=== PATIENT | female | born 1995 | race Caucasian/White ===

== ENCOUNTER 2019-03-25 00:22 | Emergency (ER) | payer OTHER ==
[2019-03-25 00:41] VITALS: BP 114/63; PULSE 93; TEMP 98.4; BMI 23.0
--- NOTE | 2019-03-25 01:00 | PDOC ---
History of Present Illness - General Chief Complaint: Vaginal Bleeding Stated Complaint: VAGINAL BLEEDING,18 WKS Time Seen by Provider: 03/25/19 00:55 History Source: Patient Exam Limitations: No Limitations - History of Present Illness Initial Comments: Senait Duvall is a 23 yo healthy F , LMP 12/15, who presents to the [facility] er after 1 hour of vaginal bleeding associated with lower abdominal and lower back cramping. The patient states she went to the bathroom, looked at the toilet and saw a bunch of clots which worried her so she came into the ER to be evaluated. 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 Her 1st was uncomplicated and she has a healthy child which was a at term. She has received routine pre- care until now, is taking her pre- vitamins, and has had no complications before tonight. She recently moved from the [place] to [place], and has a new OB assigned to her which she has not yet seen. She presents to the ER to make sure is okay and she is not having a miscarriage Denies nausea, vomtiing, fevers, or chills OB: cristela PSH: None reported Social Hx: Denies smoking, drinking or other substance usage Allergies: NKA, NKDA Past History - Past Medical History Allergies/Adverse Reactions: Allergies Allergy/AdvReac Type Severity Reaction Status Date / Time No Known Allergies Allergy Verified 03/25/19 00:40 Home Medications: Ambulatory Orders NK [No Known Home Medication] 03/25/19 - Psycho Social/Smoking Cessation Hx Smoking History: Never smoked Have you smoked in the past 12 months: No Information on smoking cessation initiated: No Hx Alcohol Use: No Drug/Substance Use Hx: No Review of Systems - Review of Systems Able to Perform ROS?: Yes Comments:: CONSTITUTIONAL: Absent: fever, no chills, no fatigue EYES: Absent: visual changes ENT: Absent: ear pain, no sore throat CARDIOVASCULAR: Absent: chest pain, no palpitations RESPIRATORY: Absent: cough, no SOB GI: Absent: abdominal pain, no nausea, no vomiting, no constipation, no diarrhea GENITOURINARY: Present: Hamturia Absent: dysuria, no frequency MUSKULOSKELETAL: Present: Back pain Absent: no arthralgia, no myalgia SKIN: Absent: rash NEURO: Absent: headache *Physical Exam - Vital Signs Last Vital Signs Temp Pulse Resp BP Pulse Ox 98.4 F 93 H 20 114/63 100 03/25/19 00:40 03/25/19 00:40 03/25/19 00:40 03/25/19 00:40 03/25/19 00:40 - Physical Exam GENERAL: Well-appearing, well-nourished. No apparent distress. HEENT: Normocephalic, atraumatic. PERRL, EOM intact. CARDIOVASCULAR: Normal S1, S2. Regular rate and rhythm. PULMONARY: No evidence of respiratory distress. Lungs clear to auscultation bilaterally. No wheezing, rales or rhonchi. ABDOMEN: Gravid uterus. Soft, non-distended. PELVIC: There is significant blood in the vaginal vault. No CMT. No adnexal TTP. Cervix is closed. EXTREMITIES: Normal ROM in all four extremities. No gross deformities. SKIN: Warm, dry. No rash NEUROLOGICAL: No focal neurological deficits. ED Treatment Course - LABORATORY CBC & Chemistry Diagram: 03/25/19 01:19 03/25/19 01:19 Medical Decision Making - Medical Decision Making Senait Duvall is a 23 yo healthy F , LMP 10, who presents to the [facility] er after 1 hour of vaginal bleeding associated with lower abdominal and lower back cramping. The patient states she went to the bathroom, looked at the toilet and saw a bunch of clots which worried her so she came into the ER to be evaluated. 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 Her 1st was uncomplicated and she has a healthy child which was a at term. She has received routine pre-panchito care until now, is taking her pre- vitamins, and has had no complications before tonight. She recently moved from the [place] to [place], and has a new OB assigned to her which she has not yet seen. She presents to the ER to make sure is okay and she is not having a miscarriage Vital Signs Temp Pulse Resp BP Pulse Ox 98.4 F 93 H 20 114/63 100 03/25/19 00:40 03/25/19 00:40 03/25/19 00:40 03/25/19 00:40 03/25/19 00:40 DDx IBNLT: Impending , threatened , hemolytic disease or the , electrolyte/metabolic disturbance, anemia Plan: Labs, urine, POCUS, type, re-assess, POCUS: Baby has a normal HR of 141, good movements Labs: Unremarkable T&S: Ab negative Urine: 2+ blood Re-assessment: Patient feels better after tylenol Disposition: Home with OB fu - Strict return precautions Discharge - Discharge Information Problems reviewed: Yes Clinical Impression/Diagnosis: Vaginal bleeding before 22 weeks gestation Condition: Stable Disposition: HOME - Admission No - Follow up/Referral - Patient Discharge Instructions Patient Printed Discharge Instructions: DI for Threatened Additional Instructions: You came into the ER with vaginal bleeding. We did an ultrasound which showed a normal heart rate and good movements. Your Beta HCG was 11,613. Your Type and screen AB was Negative. You must schedule a follow up with the OB doctor we are referring you to in the next 24 to 48 hours to make sure you and baby are okay. Come back to the ER immediately with any new or worsening concerns. Thank you for coming to the [facility] ER. We hope youf eel better soon! Print Language: URDU - Post Discharge Activity
[2019-03-25] MEDS ORDERED: ACETAMINOPHEN 325 MG TABLET (FP) PO ONE (01:30)
--- NOTE | 2019-03-25 01:30 | PDOC ---
Documentation entered by Marcelo Christiansen SCRIBE, acting as scribe for Sandra Banks DO. Sandra Banks DO: This documentation has been prepared by the Kuldip chaudhary Angel, SCRIBE, under my direction and personally reviewed by me in its entirety. I confirm that the documentation accurately reflects all work, treatment, procedures, and medical decision making performed by me. Attending Attestation - Resident Resident Name: Miguel Collado - ED Attending Attestation I have performed the following: I have examined & evaluated the patient, The case was reviewed & discussed with the resident, I agree w/resident's findings & plan, Exceptions are as noted - HPI HPI: 03/25/19 01:34 The patient is a 23 year old female, , currently 18 weeks , with no significant PMH of who presents to the emergency department for 1hr of vaginal bleeding. Pt states she sat on the toilet and noticed blood with clots in the toilet bowl. Pt states her LMP was 11/15/18. Pt states she recently moved to [place] from [facility] and does not have an OBGYN. Pts last OBGYN appointment was 2 weeks ago. The patient denies chest pain, shortness of breath, headache and dizziness. Denies fever, chills, cough, nausea, vomiting, diarrhea and constipation. Denies dysuria, frequency, urgency. Allergies: NKDA - Physicial Exam PE: 03/25/19 01:35 GENERAL: Awake, alert, and fully oriented, in no acute distress HEAD: No signs of trauma NECK: Normal ROM, supple, no lymphadenopathy, JVD, or masses LUNGS: Breath sounds equal, clear to auscultation bilaterally. No wheezes, and no crackles HEART:+tachy. no murmurs, rubs or gallops ABDOMEN: +Mild suprapubic tenderness. +gravid uterus below umbilicus. Soft, normoactive bowel sounds. No guarding, no rebound. No masses EXTREMITIES: Normal range of motion, no edema. No clubbing or cyanosis. No cords, erythema, or tenderness NEUROLOGICAL: Cranial nerves II through XII grossly intact. SKIN: Warm, Dry, normal turgor, no rashes or lesions noted. - Medical Decision Making 03/25/19 01:22 a/p: 23yo female at 18 weeks gestation with vaginal bleeding and passing clots tonight -no active bleeding at this time -mild cramping -concern for spontaneous/threatened ab -will perform pocus -will monitor and reassess -will send labs, type and screen -pt recently moved to [place] from the [place] and does not have an EQUIPMENT SPECIALIST in the area -pt with recent EQUIPMENT SPECIALIST eval by her prior color repairer in the [place] 2 weeks ago 03/25/19 01:29 pocus shows fhr 141 femur length 18w1d good movement posterior placenta 03/25/19 01:50 pt signed out to the oncoming ed physician pending labs and further eval
[2019-03-25] MEDS ORDERED: ACETAMINOPHEN 325 MG TABLET (FP) ONE (01:35)
[2019-03-25 01:50] LABS: BASO % 0.6 % (0-2.0); HEMATOCRIT 32.8 % (32.4-45.2); HEMOGLOBIN 11.3 GM/dL (10.7-15.3); LYMPH % 35.5 % (8-40); MCH 28.5 pg (25.7-33.7); MCHC 34.5 g/dl (32.0-36.0); MEAN CELL VOLUME 82.6 fl (80-96); MEAN PLT VOLUME 9.7 fl (7.5-11.1); MONO % 4.9 % (3.8-10.2); PLATELET COUNT 246 K/MM3 (134-434); RBC 3.97 M/mm3 (3.60-5.2); RDW 14.9 % (11.6-15.6)
[2019-03-25 02:27] LABS: EPI CELLS 1.6 /HPF (0-5/HPF); HYALINE CASTS 4 /lpf (0-8); PH,URINE 6.5 (5.0-8.0); URINE APPEARANCE CLOUDY; URINE BACTERIA 1.9 /hpf (NEGATIVE); URINE BILIRUBIN NEGATIVE (NEGATIVE); URINE COLOR YELLOW; URINE GLUCOSE (UA) NEGATIVE (NEGATIVE); URINE KETONE NEGATIVE (NEGATIVE); URINE LEUK ESTERASE TRACE (NEGATIVE); URINE NITRITE NEGATIVE (NEGATIVE); URINE PROTEIN NEGATIVE (NEGATIVE); URINE RBC 122 /hpf (0-4); URINE UROBILINOGEN 0.2 mg/dL (0.2-1.0); URINE WBC 3 /hpf (0-5)
[2019-03-25 02:40] LABS: ALBUMIN 3.4 g/dl (3.4-5.0); BILIRUBIN,TOTAL 0.5 mg/dL (0.2-1); BLOOD UREA NITROGEN 9.6 mg/dL (7-18); CALCIUM 9.1 mg/dL (8.5-10.1); CREATININE 0.5 mg/dL (0.55-1.3); POTASSIUM 3.7 mmol/L (3.5-5.1); TOT PROT 7.2 g/dl (6.4-8.2)
== END 2019-03-25 03:19 | disposition home or self-care (01) ==
LOC: JER 00:22
DX: O26.892 Other specified pregnancy related conditions, second trimester (principal); Z3A.22 22 weeks gestation of pregnancy; N93.9 Abnormal uterine and vaginal bleeding, unspecified
CPT/HCPCS: 36415; 76815; 80053; 81003; 84702; 85025; 86850; 86900; 86901; 99283-25

== ENCOUNTER 2019-08-17 09:20 | Inpatient (IN) | payer OTHER ==
[2019-08-17] MEDS: ELECTROLYTE-148 SOLN 1,000 ML IV SCH ×3 (10:00→17:55)
[2019-08-17] MEDS ORDERED: OXYTOCIN 30 UNITS in 0.9% NS 30 UNIT/500 ML INFUS.BAG IVPB SCH (10:45)
--- NOTE | 2019-08-17 10:52 | HP ---
Past Medical History - Admission Chief Complaint: Scheduled IOL History of Present Illness: 24yo @ 38.6wks by LMP/sono here for IOL for IUGR 9%tile per MFM recommendation. No VB/LOD. No ctx. Reports + FM PNC @ [address]; initially started in the [place] preg c/b IUGR 99%tile (5-11lbs) on 08/07 sono. IUGR first seen on 07/06 sono- again 9%tile, Hgb C trait, Rubella/Varicella NI History Source: Patient Limitations to Obtaining History: No Limitations, Clinical Condition, Dementia, Intoxication, Intubated, Language Barrier, Physical Impairment, Poor Historian, Uncooperative, Unresponsive, Other - Past Medical History VICE PRESIDENT OF PROCUREMENT: No: Alzheimer's, CVA, Dementia, Migraine, Multiple Sclerosis, Peripheral Neuropathy, Parkinson's, Seizure, Syncope, TIA, Vertigo, Other Cardiovascular: No: AFIB, Aneurysm, Aortic Insufficiency, Aortic Stenosis, CAD, CHF, Deep Vein Thrombosis, HTN, Hyperlipdemia, [place], Mitral Insufficiency, Mitral Stenosis, Murmur, Pulmonary Hypertension, Other ...: 4 ...Para: 1 ...Term: 1 ...: 0 ...Spon : 2 ...Living Children: 1 ... Weeks Gestation by Dates: 38.6 ...EDC by Dates: 08/25/19 Heme/Onc: No: Anemia, B12 Deficiency, Bleeding Disorder, Cancer, Current Chemotherapy, Current Radiation Therapy, Hemochromatosis, Hypercoaguable State, Myeloproliferative Synd, Sickle Cell Disease, Sickle Cell Trait, Thromb ocytopenia, Other Infectious Disease: No: AIDS, C-Diff, Herpes Zoster, HIV, MRSA, STD's, Tuberculosis, VREF, Other Psych: No: Addictions, Anxiety, Bipolar, Depression, Panic, Psychosis, Schizophrenia, Other Musculoskeletal: No: Bursitis, Chronic low back pain, Hemiparesis, Hemiplegia, Osteoarthritis, Paraplegia, Other Rheumatology: No: Fibromyalgia, Gout, Lupus, Rheumatoid Arthritis, Sarcoidosis, Vasculitis, Other ENT: No: Allergic Rhinitis, Sinusitis, Other Endocrine: No: Floyd's Disease, [place]'s Disease, Diabetes Insipidus, Diabetes Mellitus, Hyperparathyroidism, Hyperthyroidism, Hypothyroidism, Osteopenia, SIADH, Other - Past Surgical History Past Surgical History: Yes: None Hx Myomectomy: No Hx Transabdominal Cerclage: No - Smoking History Smoking history: Never smoked Have you smoked in the past 12 months: No - Alcohol/Substance Use Hx Alcohol Use: No Home Medications - Allergies Allergies/Adverse Reactions: Allergies Allergy/AdvReac Type Severity Reaction Status Date / Time No Known Allergies Allergy Verified 03/25/19 00:40 - Home Medications Home Medications: Ambulatory Orders NK [No Known Home Medication] 03/25/19 Review of Systems - Review of Systems Constitutional: reports: No Symptoms Neck: reports: No Symptoms Cardiovascular: reports: No Symptoms Respiratory: reports: No Symptoms Physical Exam - Maternity Constitutional: Yes: Well Nourished - Abdominal Exam/OB Number of Fetuses: Single Presentation: Vertex Contractions: No Monitor Mode: External Heart Rate Location: [facility] Category: I Accelerations: Non-Uniform Decelerations: None - Vaginal Exam/OB Vaginal Bleeding: No Speculum Exam: No Dilatation (cm): 2-3 Effacement (%): 50 Amniotic Membrane Status: Intact Presentation: Vertex/Position Imaging - Results Ultrasound: Report Reviewed Assessment/Plan 24yo @ 38.6wks by LMP/sono here for IOL for IUGR Admit to L&D Cat 1 tracing Pitocin-AROM Epidural prn Anticipate DAVID Ramírez MD
[2019-08-17 11:10] VITALS: BMI 25.0
[2019-08-17] MEDS ORDERED: OXYTOCIN 30 UNITS in 0.9% NS 30 UNIT/500 ML INFUS.BAG IVPB ONE (11:17)
[2019-08-17 12:33] LABS: BASO % 0.5 % (0-2.0); EOS % 0.7 % (0-4.5); HEMATOCRIT 28.2 % (32.4-45.2); HEMOGLOBIN 9.4 GM/dL (10.7-15.3); LYMPH % 32.8 % (8-40); MCH 25.6 pg (25.7-33.7); MCHC 33.2 g/dl (32.0-36.0); MEAN CELL VOLUME 77.2 fl (80-96); MEAN PLT VOLUME 10.2 fl (7.5-11.1); MONO % 6.8 % (3.8-10.2); NEUT % 59.2 % (42.8-82.8); PLATELET COUNT 224 K/MM3 (134-434); RBC 3.65 M/mm3 (3.60-5.2); RDW 17.1 % (11.6-15.6); WHITE BLOOD COUNT 8.5 K/mm3 (4.0-10.0)
[2019-08-17 12:41] LABS: INR 0.92 (0.83-1.09); PROTHROMBIN TIME (PATIENT) 10.9 SEC (9.7-13.0)
[2019-08-17 12:50] LABS: BLOOD UREA NITROGEN 7.9 mg/dL (7-18); CALCIUM 8.5 mg/dL (8.5-10.1); POTASSIUM 4.4 mmol/L (3.5-5.1)
[2019-08-17 12:53] LABS: CREATININE 0.5 mg/dL (0.55-1.3)
--- NOTE | 2019-08-17 13:54 | PN ---
Progress Note, Labor Vaginal Exam #1 Labor Exam Date: 08/17/19 Labor Exam Time: 13:54 Heart Rate (range): Cat I Dilatation: 3 Effacement (%): 50 Amniotic Membrane Status: Ruptured Presentation: Vertex/Position Station: -3 Remarks: AROM, clears Epidural prn Anticipate Deny Ramírez MD
[2019-08-17] MEDS ORDERED: BUPIVACAINE HCL/PF 0.25% (2.5MG/ML) 10 ML VIAL ONE (16:05)
[2019-08-17] MEDS ORDERED: NALOXONE HCL 0.4 MG/ML VIAL IVPUSH PRN (16:29)
[2019-08-17] MEDS ORDERED: FENTANYL/BUPIVACAINE/NS/PF - PCEA - 50 ML DISP.SYRIN EP SCH (16:30)
[2019-08-17] MEDS ORDERED: FENTANYL/BUPIVACAINE/NS/PF - PCEA - 50 ML DISP.SYRIN EP ONE ×2 (16:40→20:00)
--- NOTE | 2019-08-17 17:12 | PN ---
Progress Note, Labor Vaginal Exam #2 Labor Exam Date: 08/17/19 Labor Exam Time: 17:11 Heart Rate (range): Cat I Dilatation: 4 Effacement (%): 70 Amniotic Membrane Status: Ruptured Presentation: Vertex/Position Station: -3 Remarks: Now s/p epidural, comfortable Continue pitocin Anticipate Deny Ramírez MD
--- NOTE | 2019-08-17 20:26 | PN ---
Progress Note, Labor Vaginal Exam #3 Labor Exam Date: 08/17/19 Labor Exam Time: 20:00 Heart Rate (range): Cat I Dilatation: 4 Effacement (%): 70 Amniotic Membrane Status: Ruptured Presentation: Vertex/Position Station: -3 Remarks: Unchanged IUPC placed Increase pitocin to adequate MVU Anticipate DAVID Ramírez MD
[2019-08-17] MEDS ORDERED: LIDOCAINE HCL 1% PRESERVATIVE FREE - 30ML VIAL ONE (21:37)
[2019-08-17] MEDS ORDERED: OXYTOCIN 20 UNITS in 0.9% NS 20 UNIT/1,000 ML INFUS.BAG IV ONE ×2 (21:37→23:47)
[2019-08-17] MEDS ORDERED: WITCH HAZEL 50% (TUCKS) 40 PAD/JAR PAD TP PRN (21:58)
[2019-08-17] MEDS ORDERED: BISACODYL 10 MG SUPP.RECT RC PRN (21:58)
[2019-08-17] MEDS ORDERED: METHYLERGONOVINE MALEATE 0.2 MG/1 ML AMP IM PRN (21:58)
[2019-08-17] MEDS ORDERED: BENZOCAINE 20% 57 GM BOTTLE TP PRN (21:58)
[2019-08-17] MEDS ORDERED: BENZOCAINE 28 GM HEMORRHOIDAL OINTMENT TP PRN (21:58)
--- NOTE | 2019-08-17 21:58 | PN ---
Delivery - Delivery Vaginal Delivery: Spontaneous Type of Anesthesia: Epidural Episiotomy/Laceration: None EBL (cc): 350 Delivery, Single - Stages of Labor Placenta: Yes: Spontaneous - Condition of Lotteries Agent/V Belt Coverer Present: No Infant Gender: Female Position: Right, OA - 1 Minute Total Score: 9 5 Minutes Total Score: 9 - Feeding Plan Initial Plan: Exclusive throughout hospitalization Remarks - Remarks Remarks: of VFI from LURDES position over intact perineum. Epidural anesthesia. 38.6wk . IUGR. Spontaneous delivery of anterior shoulder and body. Baby placed on mother's abdomen. Cord clamped and cut. Infant vigorous. Apgars 9/9. Weight pending to allow skin to skin. Spontaneous delivery of intact placenta with 3VC. Fundus firm. Perineum inspected, no laceration. EBL 350ml. Mother and baby doing well. Chaya Ramírez MD
[2019-08-17] MEDS ORDERED: OXYTOCIN 20 UNITS in 0.9% NS 20 UNIT/1,000 ML INFUS.BAG IV SCH (22:00)
[2019-08-18] MEDS: IBUPROFEN 600 MG TABLET (FP) PO PRN ×4 (00:40→22:13)
[2019-08-18] MEDS: ACETAMINOPHEN 325 MG TABLET (FP) PO PRN ×4 (00:40→22:13)
--- NOTE | 2019-08-18 07:27 | PN ---
Post Progress Note - Subjective Subjective: No events o/n. Pain controlled. Lochia < menses. . No f earnestine/chills. +Ambulating Post Day: 1 Type of Delivery: Vital Signs: Vital Signs Temperature 98.5 F 08/18/19 05:44 Pulse Rate 90 08/18/19 05:44 Respiratory Rate 18 08/18/19 05:44 Blood Pressure 107/71 08/18/19 05:44 O2 Sat by Pulse Oximetry (%) 100 08/17/19 23:15 Uterus: Yes: Fundus below umbilicus Abdomen/GI: Yes: Abdomen soft, Passing flatus, Tolerating PO Lochia, amount: Small Extremities: Yes: Calves non-tender Perineum: Yes: Intact Activity: Ambulating - Labs Labs: CBC WBC 8.5 K/mm3 (4.0-10.0) 08/17/19 11:25 RBC 3.65 M/mm3 (3.60-5.2) 08/17/19 11:25 Hgb 9.4 GM/dL (10.7-15.3) L 08/17/19 11:25 Hct 28.2 % (32.4-45.2) L 08/17/19 11:25 MCV 77.2 fl (80-96) L 08/17/19 11:25 MCH 25.6 pg (25.7-33.7) L D 08/17/19 11:25 MCHC 33.2 g/dl (32.0-36.0) 08/17/19 11:25 RDW 17.1 % (11.6-15.6) H 08/17/19 11:25 Plt Count 224 K/MM3 (134-434) 08/17/19 11:25 MPV 10.2 fl (7.5-11.1) 08/17/19 11:25 Absolute Neuts (auto) 5.0 K/mm3 (1.5-8.0) 08/17/19 11:25 Neutrophils % 59.2 % (42.8-82.8) 08/17/19 11:25 Lymphocytes % 32.8 % (8-40) 08/17/19 11:25 Monocytes % 6.8 % (3.8-10.2) 08/17/19 11:25 Eosinophils % 0.7 % (0-4.5) 08/17/19 11:25 Basophils % 0.5 % (0-2.0) 08/17/19 11:25 Nucleated RBC % 0 % (0-0) 08/17/19 11:25 Assessment/Plan 24yo s/p , PPD#1 Routine PP care PO pain control AM Labs pending OOB, ambulate D/C to home PPD#2 given late delivery yesterday Deny Ramírez MD
[2019-08-18 08:15] LABS: BASO % 0.3 % (0-2.0); EOS % 0.4 % (0-4.5); HEMATOCRIT 24.7 % (32.4-45.2); HEMOGLOBIN 8.2 GM/dL (10.7-15.3); MCH 25.4 pg (25.7-33.7); MCHC 33.1 g/dl (32.0-36.0); MEAN CELL VOLUME 76.7 fl (80-96); MEAN PLT VOLUME 9.5 fl (7.5-11.1); NEUT % 70.3 % (42.8-82.8); PLATELET COUNT 179 K/MM3 (134-434); RBC 3.22 M/mm3 (3.60-5.2); RDW 17.3 % (11.6-15.6); WHITE BLOOD COUNT 11.3 K/mm3 (4.0-10.0)
[2019-08-18] MEDS: FERROUS SO4 325 MG TABLET (FP) PO SCH ×2 (09:08→17:24)
[2019-08-18] MEDS: PRENATAL VITAMINS W/ FOLIC ACID TABLET (FP) PO SCH (09:08)
[2019-08-18] MEDS ORDERED: SENNOSIDES/DOCUSATE COMBO (SENNA PLUS) TABLET (UD) PO PRN (22:00)
--- NOTE | 2019-08-19 06:56 | DS ---
Physical Exam-TROLLEY COLLECTOR Vital Signs: Vital Signs Temperature 97.8 F 08/18/19 22:00 Pulse Rate 72 08/18/19 22:00 Respiratory Rate 20 08/18/19 22:00 Blood Pressure 116/69 08/18/19 22:00 O2 Sat by Pulse Oximetry (%) 100 08/17/19 23:15 Constitutional: Yes: Well Nourished, No Distress, Calm Eyes: Yes: WNL, Conjunctiva Clear, EOM Intact HENT: Yes: WNL, Atraumatic, Normocephalic Neck: Yes: WNL, Supple, Trachea Midline Cardiovascular: Yes: WNL, Regular Rate and Rhythm Respiratory: Yes: WNL, Regular, CTA Bilaterally Gastrointestinal: Yes: WNL ...Rectal Exam: Yes: WNL Renal/: Yes: WNL ....Post : Yes: Uterus firm, Uterus non-tender, Slight lochia rubra Breast(s): Yes: WNL Musculoskeletal: Yes: WNL Extremities: Yes: WNL Edema: No Integumentary: Yes: WNL Neurological: Yes: WNL, Alert, Oriented ...Motor Strength: WNL Psychiatric: Yes: WNL, Alert, Oriented Labs: CBC, BMP 08/18/19 07:11 08/17/19 11:25 Delivery - Delivery Vaginal Delivery: Spontaneous Type of Anesthesia: Epidural Episiotomy/Laceration: None EBL (cc): 300 Delivery, Single - Stages of Labor Date 1st Stage Initiatied: 08/17/19 Time 1st Stage Initiated: 11:45 Date 2nd Stage Initiated: 08/17/19 Time 2nd Stage Initiated: 21:35 Date of Delivery: 08/17/19 Time of Delivery: 21:48 Time Placenta Delivered: 21:50 Placenta: Yes: Spontaneous - Condition of Didactic Instructor/Practice Architect Present: No Infant Gender: Female Weight: 6 lb 6 oz Position: Right, OA Total Hours ROM (Hrs/Mins): 8hrs - 1 Minute Total Score: 9 5 Minutes Total Score: 9 - [place] Feeding Plan Initial Plan: Exclusive throughout hospitalization Discharge Summary Problems reviewed: Yes Reason For Visit: INDUCTION OF LABOR Current Active Problems IUGR (intrauterine growth restriction) (Acute) Procedures: Principal: Hospital Course: no complication Health Concerns: anemia Plan of Treatment: iron, vit follow up [facility] care 4 weeks Condition: Stable - Instructions Diet, Activity, Other Instructions: Follow up in 4 weeks for your visit Referrals: Chaya Ramírez MD [Staff Physician] - Disposition: HOME - Home Medications Comprehensive Discharge Medication List: Ambulatory Orders Ferrous Sulfate [Feosol] 325 mg PO DAILY #30 tablet 08/17/19 Ibuprofen 600 mg PO Q6H PRN #30 tablet 08/17/19 Vitamins (Sjr) - 1 tab PO DAILY 08/17/19 Breast Pump 1 each MC 5XD 30 Days #1 each 08/18/19
[2019-08-19] MEDS: FERROUS SO4 325 MG TABLET (FP) PO SCH (09:20)
[2019-08-19] MEDS: PRENATAL VITAMINS W/ FOLIC ACID TABLET (FP) PO SCH (09:20)
[2019-08-19 13:27] VITALS: BP 110/66; PULSE 88; TEMP 98
== END 2019-08-19 12:15 | disposition home or self-care (01) | DRG 560 ==
LOC: JLDR 09:20 → J3W 08-18 00:16
PROVIDERS: ADMIT Obstetrics & Gynecology; ATTEND Obstetrics & Gynecology
PROC: 10E0XZZ Delivery of Products of Conception, External Approach (ICD-10-PCS; principal; 2019-08-17)
DX: O36.5930 Maternal care for other known or suspected poor fetal growth, third trimester, not applicable or unspecified (principal); O99.02 Anemia complicating childbirth; D64.9 Anemia, unspecified; Z3A.38 38 weeks gestation of pregnancy; Z37.0 Single live birth
CPT/HCPCS: 36415; 59409; 80048; 85025; 85610; 85730; 86780; 86850; 86900; 86901; U0003

== ENCOUNTER 2020-09-16 16:31 | Emergency (ER) | payer OTHER ==
[2020-09-16 16:36] VITALS: TEMP 98.2; BMI 25.0
[2020-09-16] MEDS ORDERED: IBUPROFEN 400 MG TABLET (FP) PO ONE ×2 (18:33→18:57)
[2020-09-16] MEDS ORDERED: ACETAMINOPHEN 325 MG TABLET (FP) PO ONE (18:33)
[2020-09-16] MEDS ORDERED: ACETAMINOPHEN 325 MG TABLET (FP) ONE (18:56)
[2020-09-16 19:45] LABS: BASO % 0.8 % (0-2.0); EOS % 0.6 % (0-4.5); HEMATOCRIT 33.6 % (32.4-45.2); HEMOGLOBIN 11.3 GM/dL (10.7-15.3); LYMPH % 39.5 % (8-40); MCH 23.7 pg (25.7-33.7); MCHC 33.5 g/dl (32.0-36.0); MEAN CELL VOLUME 70.7 fl (80-96); MEAN PLT VOLUME 9.5 fl (7.5-11.1); MONO % 5.2 % (3.8-10.2); NEUT % 53.9 % (42.8-82.8); PLATELET COUNT 323 10^3/uL (134-434); RBC 4.76 M/mm3 (3.60-5.2); RDW 18.5 % (11.6-15.6); WHITE BLOOD COUNT 11.2 K/mm3 (4.0-10.0)
[2020-09-16 20:03] LABS: EPI CELLS 5 /uL (0-25.1); HYALINE CASTS 19 /uL (0-3.1); PH,URINE 5.5 (5.0-8.0); URINE APPEARANCE CLOUDY; URINE BACTERIA >9,000 /uL (0-1359); URINE BILIRUBIN NEGATIVE (NEGATIVE); URINE COLOR YELLOW; URINE GLUCOSE (UA) NEGATIVE (NEGATIVE); URINE KETONE NEGATIVE (NEGATIVE); URINE LEUK ESTERASE 2+ (NEGATIVE); URINE NITRITE POSITIVE (NEGATIVE); URINE PROTEIN TRACE (NEGATIVE); URINE RBC 8 /uL (0-23.9); URINE WBC 222 /uL (0-25.8)
[2020-09-16 20:12] LABS: CALCIUM 9.3 mg/dL (8.5-10.1)
[2020-09-16 20:13] LABS: BLOOD UREA NITROGEN 10.6 mg/dL (7-18)
[2020-09-16 20:16] LABS: CREATININE 0.8 mg/dL (0.55-1.3)
[2020-09-16 20:17] LABS: BILIRUBIN,TOTAL 0.6 mg/dL (0.2-1)
[2020-09-16 20:18] LABS: TOT PROT 8.4 g/dl (6.4-8.2)
[2020-09-16] MEDS ORDERED: CEPHALEXIN MONOHYDRATE 500 MG CAPSULE (UD) PO ONE (20:24)
[2020-09-16] MEDS ORDERED: CEFTRIAXONE 1,000 MG in DEXTROSE 5%-WATER - 50 ML IVPB ONE ×2 (20:59→21:06)
[2020-09-16] MEDS ORDERED: CEFTRIAXONE 1 GM/50 ML BAG ONE (21:10)
[2020-09-16] MEDS ORDERED: SULFAMETHOXAZOLE/TRIMETHOPRIM 800MG/160MG D.S. TABLET PO ONE (21:21)
[2020-09-16 21:28] VITALS: BP 116/74; PULSE 84
[2020-09-16] MEDS ORDERED: SULFAMETHOXAZOLE/TRIMETHOPRIM 800MG/160MG D.S. TABLET ONE (21:30)
== END 2020-09-16 21:38 | disposition home or self-care (01) ==
LOC: JER 16:31
PROC: 3E033GC Introduction of Other Therapeutic Substance into Peripheral Vein, Percutaneous Approach (ICD-10-PCS; principal; 2020-09-16)
DX: N10 Acute pyelonephritis (principal); N39.0 Urinary tract infection, site not specified
CPT/HCPCS: 36415; 74176-TC; 80053; 81003; 84703; 85025; 87086; 87186; 99285-25

== ENCOUNTER 2022-02-23 14:00 | Emergency (ER) | payer OTHER ==
[2022-02-23 14:03] VITALS: BMI 22.4
[2022-02-23] MEDS ORDERED: ONDANSETRON 4 MG/2 ML VIAL IVPUSH ONE (15:50)
[2022-02-23] MEDS ORDERED: SODIUM CHLORIDE 0.9% 500 ML INFUS.BAG IV ONE (15:50)
[2022-02-23] MEDS ORDERED: ACETAMINOPHEN 325 MG TABLET (FP) PO ONE (15:58)
[2022-02-23] MEDS ORDERED: ACETAMINOPHEN 325 MG TABLET (FP) ONE (16:05)
[2022-02-23] MEDS ORDERED: ONDANSETRON 4 MG/2 ML VIAL ONE (16:06)
[2022-02-23] MEDS ORDERED: ACETAMINOPHEN 1000 MG/100 ML BAG IVPB ONE (16:11)
[2022-02-23 16:25] LABS: EOS % 0.5 % (0-4.5); HEMATOCRIT 39.4 % (32.4-45.2); HEMOGLOBIN 13.4 GM/dL (10.7-15.3); LYMPH % 37.9 % (8-40); MCH 26.5 pg (25.7-33.7); MEAN CELL VOLUME 77.8 fl (80-96); MEAN PLT VOLUME 9.7 fl (7.5-11.1); MONO % 5.5 % (3.8-10.2); NEUT % 55.1 % (42.8-82.8); PLATELET COUNT 310 10^3/uL (134-434); RBC 5.06 M/mm3 (3.60-5.2); RDW 14.9 % (11.6-15.6); WHITE BLOOD COUNT 8.5 K/mm3 (4.0-10.0)
[2022-02-23 16:44] LABS: ALBUMIN 4.3 g/dl (3.4-5.0); BLOOD UREA NITROGEN 15.9 mg/dL (7-18); CALCIUM 9.7 mg/dL (8.5-10.1)
[2022-02-23 16:47] LABS: CREATININE 0.8 mg/dL (0.55-1.3)
[2022-02-23 16:49] LABS: BILIRUBIN,TOTAL 1.2 mg/dL (0.2-1); TOT PROT 8.7 g/dl (6.4-8.2)
[2022-02-23 17:08] LABS: EPI CELLS 29 /uL (0-25.1); HYALINE CASTS 6 /uL (0-3.1); URINE APPEARANCE CLEAR; URINE BACTERIA 7531 /uL (0-1359); URINE BILIRUBIN NEGATIVE (NEGATIVE); URINE COLOR YELLOW; URINE GLUCOSE (UA) NEGATIVE (NEGATIVE); URINE KETONE TRACE (NEGATIVE); URINE LEUK ESTERASE TRACE (NEGATIVE); URINE NITRITE POSITIVE (NEGATIVE); URINE PROTEIN TRACE (NEGATIVE); URINE RBC 81 /uL (0-23.9); URINE UROBILINOGEN 0.2 mg/dL (0.2-1.0); URINE WBC 85 /uL (0-25.8)
[2022-02-23] MEDS ORDERED: ACETAMINOPHEN INJECTION 100 ML IVPB ONE (17:52)
[2022-02-23 19:46] VITALS: BP 122/78; PULSE 89; RESP 19; TEMP 97.8
== END 2022-02-23 20:10 | disposition home or self-care (01) ==
LOC: JER 14:00
PROC: 3E0333Z Introduction of Anti-inflammatory into Peripheral Vein, Percutaneous Approach (ICD-10-PCS; principal; 2022-02-23)
PROC: 3E033GC Introduction of Other Therapeutic Substance into Peripheral Vein, Percutaneous Approach (ICD-10-PCS; 2022-02-23)
DX: N39.0 Urinary tract infection, site not specified (principal)
CPT/HCPCS: 0241U-QW; 36415; 76830-TC; 80053; 81003; 84703; 85025; 86850; 86900; 86901; 87086; 87186; 99284-25